=== PATIENT | male | born 1960 | race Two or more races ===

== ENCOUNTER 2025-01-02 14:33 | Emergency (ER) | payer OTHER ==
[~2025-01-02] VITALS: Ht 182.9 cm; Wt 117.7 kg
--- NOTE | 2025-01-02 15:20 | DVH ---
EXAM: XY CHEST TWO VIEWS ROUTINE HISTORY: cough COMPARISON: None TECHNIQUE: Frontal and lateral views of the chest were performed. FINDINGS: No pneumothorax, pulmonary edema, pleural effusions, or consolidative infiltrates. There is mild cent ral peribronchial thickening. The heart is not enlarged. No fractures are identified about the bony thorax. There is thoracic degenerative disc disease with multiple bridging syndesmophytes present. IMPRESSION: 1. Mild reactive airways disease. The lungs are otherwise clear. 2. Thoracic spondylosis with some degree of ankylosis. Correlate for possible ankylosing spondylitis .
--- NOTE | 2025-01-02 15:28 | ED.PDOC ---
SOB-HPI HPI Comments A 64 YEAR OLD MALE PRESENTS TO THE ED WITH CHIEF COMPLAINT OF COUGH. PATIENT REPORTS THAT HE HAS BEEN EXPERIENCING A COUGH FOR THE PAST 4 WEEKS WITH ASSOCIATED HEADACHE AFTER COUGHING. PATIENT RELAYS THAT HIS COUGH RESOLVED FOR 405 DAYS BEFORE RETURNING AGAIN. PATIENT STATES HE HAS AN INHALER, BUT NO RELIEF HAS BEEN NOTED. PATIENT DENIES ANY SOB, DIZZINESS, FEVER, CHILLS, SORE THROAT, OR N/V. NO OTHER SYMPTOMS REPORTED AT THIS TIME OF CARE. Chief Complaint: Cough Time Seen by MD: 15:19 Reviewed notes: Nurses Notes, Medications, Allergies Information Source: Patient Mode of Arrival: Ambulatory Severity: Moderate Timing: Weeks Duration: Since onset Context: At Rest PE Risk Factors: None History of: None Prehospital treatment: None Modifying Factors: Nothing Associated Signs and Symptoms: Cough If cough with SOB: Productive Past Medical History PAST MEDICAL HISTORY: Denies Past Medical History (Other): SPONDYLITIS Surgical History: Denies all surgeries Family History Family History: Reviewed,noncontributory to illness Social History Smoker: Non-Smoker Alcohol: Denies ETOH Use Drugs: Denies Drug Use Lives In: Home Constitutional: denies: chills, diaphoresis, fatigue, fever, malaise, sweats, weakness, others EENTM: denies: blurred vision, double vision, ear bleeding, ear discharge, ear drainage, ear pain, ear ringing, eye pain, eye redness, hearing loss, mouth pain, mouth swelling, nasal discharge, nose bleeding, nose congestion, nose pain, photophobia, tearing, throat pain, throat swelling, voice changes, others Respiratory: reports: cough; denies: hemoptysis, orthopnea, SOB at rest, shortness of breath, SOB with excertion, stridor, wheezing, others Cardiovascular: denies: chest pain, dizzy spells, diaphoresis, Dyspnea on exertion, edema, irregular heart beat, left arm pain, lightheadedness, palpitations, PND, syncope, others Gastrointestinal: denies: abdomen distended, abdominal pain, blood streaked bowels, constipated, diarrhea, dysphagia, difficulty swallowing, hematemesis, melena, nausea, poor appetite, poor fluid intake, rectal bleeding, rectal pain, vomiting, others Genitourinary: denies: burning, dysuria, flank pain, frequency, hematuria, incontinence, penile discharge, penile sore, pain, testicle pain, testicle swelling, urgency, others Neurological: denies: dizziness, fainting, headache, left sided numbness, left sided weakness, numbness, paresthesia, pre-existing deficit, right sided numbness, right sided weakness, seizure, speech problems, tingling, tremors, weakness, others Musculoskeletal: denies: back pain, gout, joint pain, joint swelling, muscle pain, muscle stiffness, neck pain, others Integumetry: denies: bruises, change in color, change in hair/nails, dryness, laceration, lesions, lumps, rash, wounds, others Allergic/Immunocompromised: denies: Difficulty Healing, Frequent Infections, Hives, Itching, others Hematologic/Lymphatic: denies: anemia, blood clots, easy bleeding, easy bruising, swollen glands, others Endocrine: denies: excessive hunger, excessive sweating, excessive thirst, excessive urination, flushing, intolerance to cold, intolerance to heat, unexplained weight gain, unexplained weight loss, others Psychiatric: denies: anxiety, bipolar disorder, depression, hopeless, panic disorder, schizophrenia, sleepless, suicidal, others All Other Systems: Reviewed and Negative Physical Exam General Appearance: No Apparent Distress, Normal HEENT: Normal ENT Inspection, PERRL/EOMI Neck: Full Range of Motion, Non-Tender, Normal, Normal Inspection Respiratory: Chest Non-Tender, Decreased Breath Sounds, Expiration, No Access ory Muscle Use, No Respiratory Distress, Rhonchi Cardiovascular: No Edema, No JVD, No Murmur, No Gallop, Normal Peripheral Pulses, Regular Rate/Rhythm Breast Exam: Deferred Gastrointestinal: No Organomegaly, Non Tender, No Pulsatile Mass, Normal Bowel Sounds, Soft Genitalia: Deferred Pelvic: Deferred Rectal: Deferred Extremities: No calf tenderness, Normal capillary refill, Normal inspection, Normal range of motion, Non-tender, No pedal edema Musculoskeletal : Apperance: Normal Neurologic: Alert, dehydrator II-XII nml as Tested, No Motor Deficits, Normal Affect, Normal Mood, No Sensory Deficits Cerebellar Function: Normal Reflexes: Normal Skin: Dry, Normal Color, Warm Peripheral Pulses: 2+ carotid (R), 2+ carotid (L) Lymphatic: No Adenopathy Was a procedure done? Was a procedure done?: No Differential Dx Differential Diagnosis: Bronchitis, Pneumonia, Sinusitis, Allergic Rhinitis, Otitis Media, Pharyngitis, URI X-Ray, Labs, Meds, VS Vital Signs Date Time Temp Pulse Resp B/P (MAP) Pulse Ox O2 Delivery O2 Flow Rate FiO2 01/02/25 15:41 18 94 Room Air* 0 21 01/02/25 15:36 84 20 96 Room Air 01/02/25 15:36 99.1 88 20 161/94 (116) 96 99.1 01/02/25 14:47 99.1 84 18 76/68 (71) 96 01/02/25 14:47 18 97 Room Air* 0 21 Current Medications Medications (Trade) Dose Ordered Sig/Leticia Route Start Time Stop Time Status Last Admin Albuterol (Ventolin Medneb) 2.5 mg ONCE ONCE NEB 01/02/25 15:30 01/02/25 15:31 DC 01/02/25 15:39 Ipratropium [place] (Atrovent Medneb) 0.5 mg ONCE ONCE NEB 01/02/25 15:30 01/02/25 15:31 DC 01/02/25 15:38 CHEST XR: FINDINGS: No pneumothorax, pulmonary edema, pleural effusions, or consolidative infiltrates. There is mild central peribronchial thickening. The heart is not enlarged. No fractures are identified about the bony thorax. There is thoracic degenerative disc disease with multiple bridging syndesmophytes present. IMPRESSION: 1. Mild reactive airways disease. The lungs are otherwise clear. 2. Thoracic spondylosis with some degree of ankylosis. Correlate for possible ankylosing spondylitis. X-Ray, Labs, Meds, VS Comment EXTERNAL MEDICAL RECORDS REVIEWED: [NONE] INDEPENDENT HISTORIANS: [NONE] SOCIAL DETERMINANTS OF HEALTH: [NONE] LABS ORDERED: NONE REVIEWED AND INTERPRETED RESULTS: CHEST XR INTERPRETED BY ME. NO ACUTE FINDINGS. NO PNEUMONIA. NO CONSOLIDATIONS. NO INFILTRATES. PENDING RADIOLOGIST REPORT. IMAGING ORDERED: CHEST XR TREATMENTS ORDERED: DUO NEB BREATHING TREATMENT, SOLU-MEDROL 125MG IM PROCEDURES PERFORMED: NONE CRITICAL CARE TIME: NONE I HAVE DISCUSSED THE PATIENT WITH THE ATTENDING PHYSICIAN DR. ZAVALA AND HE AGREES WITH THE PATIENT'S PLAN OF CARE AND DISPOSITION. BASED ON HISTORY OF PRESENT ILLNESS, AND PHYSICAL EXAM, PATIENT WILL BE DISCHARGED HOME. DISCUSSED PLAN FOR DISCHARGE HOME WITH RX. MEDICATION WARNINGS GIVEN. SHARED DECISION MAKING: DISCUSSED WITH PATIENT THAT THEIR WORKUP WAS NORMAL. PATIENT INSTRUCTED TO FOLLOW UP WITH PRIMARY CARE PROVIDER IN 1-2 DAYS FOR RE- EVALUATION OF SYMPTOMS. PATIENT VERBALIZES UNDERSTANDING TO RETURN TO ED FOR NEW OR WORSENING SYMPTOMS OR IF FOLLOW UP WITH PCP CANNOT BE OBTAINED. PATIENT FEELS COMFORTABLE GOING HOME AT THIS TIME. ALL QUESTIONS ADDRESSED AT TIME OF DISCHARGE. Time of 1ST Reevaluation: 15:30 Reevaluation 1ST: Improved Patient Education/Counseling: Diagnosis, Treatment Family Education/Counseling: Diagnosis, Treatment, No Family Present Medical Screening: No EMC Exist At This Time Departure 1 Departure Time of Disposition: 16:00 Impression: Primary Impression: Acute bronchitis with bronchospasm Disposition: HOME / SELF CARE / HOMELESS Condition: Stable Additional Instructions: FOLLOW-UP WITH PCP IN 1 TO 2 DAYS. TAKE MEDICATIONS PRESCRIBED. RETURN TO ED FOR ANY NEW OR WORSENING SYMPTOMS. e-Prescriptions Prednisone (Prednisone) 20 Mg Tab 60 MG PO DAILY, #18 TAB Prov: ZI SALEH 01/02/25 Promethazine-Dm (Promethazine Dm 6.25-15 mg/5Ml) 1 Emelyn Emelyn 10 ML PO TID, #180 ML Prov: ZI SALEH 01/02/25 Azithromycin (Azithromycin) 500 Mg Tab 1 TAB PO DAILY, #5 TAB Prov: ZI SALEH 01/02/25 Discharged With: Self Critical Care Note Critical Care Time?: No Stability Stability form required: No Heart Score Heart Score: Heart Score Response (Comments) Value History N/A 0 EKG N/A 0 Age N/A 0 Risk Factors N/A 0 Troponin N/A 0 Total 0 I personally scribed for ZI SALEH ([email or web address]) on 01/02/25 at 15:28. Electronically submitted by Karel Kennedy ([email or web address]). ZI SALEH Jan 02, 2025 15:28
[2025-01-02 15:36] VITALS: BP 161/94; PULSE 84; TEMP 99.1
[2025-01-02] MEDS: IPRATROPIUM BROM 0.5 MG/2.5ML INH SOL NEB ONE (15:38)
[2025-01-02] MEDS: ALBUTEROL SULF 2.5 MG/0.5ML(0.5%) NEB SOLN NEB ONE (15:39)
[2025-01-02 15:41] VITALS: RESP 18; O2SAT 94
[2025-01-02] MEDS ORDERED: PRED20TA2 PO (15:56)
[2025-01-02] MEDS ORDERED: AZIT500T66 PO (15:56)
[2025-01-02] MEDS ORDERED: PROM1SOL4 PO (15:56)
== END 2025-01-02 16:01 | disposition home or self-care (01) ==
LOC: ER 14:46
DX: J20.9 Acute bronchitis, unspecified (principal)
CPT/HCPCS: 71046; 94640

== ENCOUNTER 2025-01-07 10:14 | Emergency (ER) | payer MEDICARE, OTHER ==
[~2025-01-07] VITALS: Ht 180.3 cm; Wt 113.6 kg
[~2025-01-07 10:14] MED LIST: AZIT500T66 PO; PRED20TA2 PO; PROM1SOL4 PO
--- NOTE | 2025-01-07 11:30 | DVH ---
EXAM: XY CHEST TWO VIEWS ROUTINE CLINICAL HISTORY: SOB COMPARISON: XY CHEST TWO VIEWS ROUTINE on DOS: 01/02/25 TECHNIQUE: Frontal and lateral view of the chest was obtained FINDINGS: Lines and Tubes: None Lungs: No focal consolidation. There is mild scarring versus atelectasis in the lower lungs. Pleura: No effusion. No pneumothorax. Cardiomediastinal contours: Unremarkable Pulmonary vasculature: Within normal limits. Bones: No acute osseous abnormality. IMPRESSION: 1. No acute cardiopulmonary disease. HS:Y
[2025-01-07] MEDS: IPRATROPIUM BROM 0.5 MG/2.5ML INH SOL NEB ONE (11:34)
[2025-01-07] MEDS: ALBUTEROL SULF 2.5 MG/0.5ML(0.5%) NEB SOLN NEB ONE (11:34)
[2025-01-07 11:57] LABS: Basophils # (auto) 0 10 ^3/uL (0-0.2); Eosinophils # (auto) 0 10 ^3/uL (0-0.8); Hematocrit 49.8 % (41.0-53.0); Hemoglobin 17.2 g/dL (13.5-17.5); Lymphocytes # (auto) 1.4 10 ^3/uL (0.4-5.4); Mean Corpuscular Hemoglobin 31.5 pg (28.0-32.0); Mean Corpuscular Hgb Conc. 34.6 g/dL (32.0-36.0); Monocytes # (auto) 0.7 10 ^3/uL (0-1.3); Monocytes % (auto) 13.2 % (0.0-12.0); Neutrophils # (auto) 3.5 10 ^3/uL (1.6-8.6); Neutrophils % (auto) 62.8 % (37.0-80.0); Nucleated Red Blood Cells % 0.1 %; Platelet Count (auto) 123 10^3/uL (140-450); Red Blood Cells 5.47 10^6/uL (4.5-5.90); Red Cell Distribution Width 14.7 % (11.8-14.3); White Blood Cell 5.7 10^3/uL (4.4-10.8)
[2025-01-07 12:12] LABS: Chloride 102 mmol/L (98-107); Potassium 3.8 mmol/L (3.5-5.1); Sodium 137 mmol/L (136-145)
[2025-01-07 12:13] LABS: Anion Gap 12 (5-15); Calcium 9.5 mg/dL (8.7-10.4); Carbon Dioxide 23 mmol/L (20-31)
[2025-01-07 12:18] LABS: Glucose 93 mg/dL (74-106)
[2025-01-07 12:35] LABS: Blood Urea Nitrogen 24 mg/dL (9-23)
[2025-01-07 14:40] VITALS: BP 127/73; PULSE 81; RESP 18; TEMP 98.7; O2SAT 92
[2025-01-07] MEDS ORDERED: ALBU108A5 IN (14:58)
[2025-01-07] MEDS ORDERED: BENZ100C97 PO (14:58)
[2025-01-07] MEDS ORDERED: GUAI1SOL3 PO (14:58)
--- NOTE | 2025-01-07 14:59 | ED.PDOC ---
SOB-HPI HPI Comments 64 year old presents for SOB and uncontrollable cough x 1 wk. He was seen approximately one week ago here for the same complaint and was diagnosed with a reactive airway disease. Was sent home with steroids antibiotics but did not help Denies nighttime awakenings Denies fever chills night sweat Chief Complaint: Cough Time Seen by MD: 10:47 Reviewed notes: Nurses Notes, Medications, Allergies Information Source: Patient Mode of Arrival: Ambulatory Past Medical History PAST MEDICAL HISTORY: Denies Surgical History: Denies all surgeries Family History Family History: Reviewed,noncontributory to illness Social History Smoker: Non-Smoker Alcohol: Denies ETOH Use Drugs: Denies Drug Use Lives In: Home All Other Systems: Reviewed and Negative (Per HPI) Physical Exam General Appearance: No Apparent Distress, Normal HEENT: Normal ENT Inspection, Pharynx Normal, TMs Normal Neck: Full Range of Motion, Non-Tender, Normal, Normal Inspection Respiratory: Chest Non-Tender, No Accessory Muscle Use, No Respiratory Distress, Wheezing Cardiovascular: No Murmur, No Gallop, Regular Rate/Rhythm Breast Exam: Deferred Gastrointestinal: No Organomegaly, Non Tender, No Pulsatile Mass, Normal Bowel Sounds, Soft Genitalia: Deferred Pelvic: Deferred Rectal: Deferred Extremities: No calf tenderness, Normal capillary refill, Normal inspection, Normal range of motion, Non-tender, No pedal edema Musculoskeletal : Apperance: Normal Neurologic: Alert, No Motor Deficits, Normal Affect, Normal Mood, No Sensory Deficits Cerebellar Function: Normal Reflexes: Normal Skin: Dry, Normal Color, Warm Lymphatic: No Adenopathy Was a procedure done? Was a procedure done?: No Differential Dx Differential Diagnosis: Asthma, Bronchitis, Pneumonia X-Ray, Labs, Meds, VS Vital Signs Date Time Temp Pulse Resp B/P (MAP) Pulse Ox O2 Delivery O2 Flow Rate FiO2 01/07/25 14:40 92 Room Air* 0 21 01/07/25 14:40 98.7 81 18 127/73 (91) 92 98.7 01/07/25 13:30 98.4 78 18 126/74 (91) 95 98.4 01/07/25 13:30 95 Nasal Cannula* 2 28 01/07/25 11:36 22 93 Non-Rebreather 15 N/A 01/07/25 11:11 97.9 92 22 149/80 (103) 93 97.9 01/07/25 11:11 92 22 93 Room Air 01/07/25 10:42 22 93 Room Air* 0 21 01/07/25 10:38 97.9 92 22 149/80 (103) 93 Lab Test 01/07/25 11:32 01/07/25 11:11 Range/Units Blood Gas Specimen Type Arterial Blood Gas Sample Site Right radial Blood Gas Patient Temperature 37.0 Arterial Blood Date Drawn [id number] Arterial Blood pH 7.456 H 7.350-7.450 Arterial Blood Partial Pressure CO2 35.8 35.0-48.0 mmHg Arterial Blood Partial Pressure O2 117.6 H 83.0-108.0 mmHg Arterial Blood HCO3 24.7 21.0-28.0 mmol/L Arterial Blood Oxygen Saturation 98.3 H 94.0-98.0 % Arterial Blood Base Excess 1.3 -2.0-3.0 mmol/L Arterial Blood Oxyhemoglobin 97.4 94.0-98.0 % Arterial Blood Carboxyhemoglobin 0.2 L 0.5-1.5 % Arterial Blood Methemoglobin 0.7 0.0-1.5 % Paul Test Yes Blood Gas Total Hemoglobin 18.00 H 13.5-17.5 g/dL Blood Gas Liter Flow 15.00 Blood Gas Modality Mask - nrb FiO2 % 100.0 White Blood Count 5.7 4.4-10.8 10^3/uL Red Blood Count 5.47 4.5-5.90 10^6/uL Hemoglobin 17.2 13.5-17.5 g/dL Hematocrit 49.8 41.0-53.0 % Mean Corpuscular Volume 91.0 80.0-100.0 fL Mean Corpuscular Hemoglobin 31.5 28.0-32.0 pg Mean Corpuscular Hemoglobin Concent 34.6 32.0-36.0 g/dL Red Cell Distribution Width 14.7 H 11.8-14.3 % Platelet Count 123 L 140-450 10^3/uL Mean Platelet Volume 10.2 6.9-10.8 fL Neutrophils (%) (Auto) 62.8 37.0-80.0 % Lymphocytes (%) (Auto) 24.0 10.0-50.0 % Monocytes (%) (Auto) 13.2 H 0.0-12.0 % Eosinophils (%) (Auto) 0.0 0.0-7.0 % Basophils (%) (Auto) 0.0 0.0-2.0 % Neutrophils # (Auto) 3.5 1.6-8.6 10 ^3/uL Lymphocytes # (Auto) 1.4 0.4-5.4 10 ^3/uL Monocytes # (Auto) 0.7 0-1.3 10 ^3/uL Eosinophils # (Auto) 0 0-0.8 10 ^3/uL Basophils # (Auto) 0 0-0.2 10 ^3/uL Nucleated Red Blood Cells 0.1 % Sodium Level 137 136-145 mmol/L Potassium Level 3.8 3.5-5.1 mmol/L Chloride Level 102 98-107 mmol/L Carbon Dioxide Level 23 20-31 mmol/L Anion Gap 12 5-15 Blood Urea Nitrogen 24 H 9-23 mg/dL Creatinine 1.26 0.700-1.30 mg/dL Glomerular Filtration Rate Calc 64 >90 mL/min BUN/Creatinine Ratio 19.0 10.0-20.0 Serum Glucose 93 74-106 mg/dL Lactic Acid Level 1.9 0.4-2.0 mmol/L Calcium Level 9.5 8.7-10.4 mg/dL B-Type Natriuretic Peptide 28.94 0-100 pg/mL X-Ray, Labs, Meds, VS Comment Patient presents with cough and expiratory wheezing, with tachypnea and accesso ry muscle use indicative of asthma exacerbation. Exacerbation likely in the setting of cold weather Unclear cause of the asthma exacerbation. Differentials considered but not limited to: PNA, bronchiolitis, Foreign body airway obstruction, GERD. I also considered pulmonary embolism, CHF, COPD, however, this is less likely as the patients pulse oximetry is with normal limits and ambulating without difficulty. Chest x-ray was obtained, and interpreted independently by myself as not showing focal consolidations or lobar pneumonia. Labs reassuring While in the ED, the patient was treated with Albuterol and Atrovent On reevaluation symptoms improved with treatment in the ED. Vital signs and exam reassuring. Lungs clear no wheezing. No labored breathing. No signs of respiratory distress. Inhaler prescribed as needed. Strict return precautions were discussed. Follow up with PCP 2-3 days. On reevaluation, patient had symptomatic improvement. Patient is stable for discharge at this time. External notes reviewed. Test results and diagnostic imaging interpreted. All diagnostic findings, discharge care, education and instructions provided Follow-up with PCP in 2 to 3 days Patient verbalized understanding and agreed to treatment plan Vital signs stable, afebrile, no acute distress noted Patient ambulatory with strong steady gait Advised to return precautions for any new or worsening symptoms, return to ER immediately for re-evaluation Patient is aware that the purpose of this visit was for an acute medical emergency requiring emergent stabilization. Chronic conditions, including malignancies have not been ruled out. Patient is instructed to follow up with PCP as directed and discharge instructions for continued care and workup. If unable to arrange follow-up, patient is to return to the emergency department for reassessment. Patient (parent or legal guardian if applicable) was given verbal and written discharge instructions and acknowledges understanding. Time of 1ST Reevaluation: 14:30 Reevaluation 1ST: Improved Patient Education/Counseling: Diagnosis, Treatment Family Education/Counseling: Diagnosis, Treatment Departure 1 Departure Time of Disposition: 14:57 Impression: Primary Impression: Reactive airway disease Qualified Codes: J45.21 - Mild intermittent asthma with (acute) exacerbation Disposition: 01 HOME / SELF CARE / HOMELESS Condition: Stable e-Prescriptions Benzonatate (Benzonatate) 100 Mg Cap 1 CAP PO TID for 10 Days, #30 CAP 0 Refills Prov: EARL SAENZ NP 01/07/25 Albuterol Sulfate (Albuterol Sulfate Hfa) 108 Mcg/Act Aer 1 PUFF IN Q6HP PRN for 30 Days, #1 AER 0 Refills Prov: EARL SAENZ NP 01/07/25 Discharged With: Self Critical Care Note Critical Care Time?: No Stability Stability form required: No Heart Score Heart Score: Heart Score Response (Comments) Value History N/A 0 EKG N/A 0 Age N/A 0 Risk Factors N/A 0 Troponin N/A 0 Total 0 EARL SAENZ NP Jan 07, 2025 14:59
[2025-01-07 16:29] LABS: Base Excess 1.3 mmol/L (-2.0-3.0)
== END 2025-01-07 15:04 | disposition home or self-care (01) ==
LOC: ER 10:14
DX: J45.909 Unspecified asthma, uncomplicated (principal); R05.9 Cough, unspecified
CPT/HCPCS: 36415; 36600; 71046; 80048; 82805; 83605; 83880; 85025; 94640